=== PATIENT | male | born 1990 | race Caucasian/White ===

== ENCOUNTER 2018-02-24 19:42 | Emergency (ER) | payer OTHER ==
--- NOTE | 2018-02-24 20:02 | EDPHY ---
H & P Stated Complaint: Poss seizure, blackrody, recently started new meds Time Seen by Provider: 02/24/18 20:02 HPI/ROS: CHIEF COMPLAINT: First-time seizure HISTORY OF PRESENT ILLNESS: The patient presents to the ED after witnessed first-time seizure at work. It was associated with a postictal state and reported 15 sec episode of tonic-clonic movements according to his co-workers. The patient did experience a tongue bite. The patient recently started Zoloft for anxiety. He reportedly has been tapering is alcohol consumption over the past several weeks as well. The patient denies any complaints of headache or trauma. The patient is also on medications for insomnia, nausea and hypertension. He recently has established care at the [facility]. REVIEW OF SYSTEMS: A comprehensive 10 point review of systems is otherwise negative aside from elements mentioned in the history of present illness. Source: Patient - Personal History Current Tetanus Diphtheria and Acellular Pertussis (TDAP): Yes - Medical/Surgical History Hx Asthma: No Hx Chronic Respiratory Disease: No Hx Diabetes: No Hx Cardiac Disease: No Hx Renal Disease: No Hx Cirrhosis: No Hx Alcoholism: No Hx HIV/AIDS: No Hx Splenectomy or Spleen Trauma: No Other PMH: Depression, - Social History Smoking Status: Light smoker - Physical Exam Exam: General Appearance: Alert, no acute distress Eyes: Pupils equal and round no pallor or injection ENT, Mouth: Mucous membranes moist, evidence of tongue bite Respiratory: There are no retractions, lungs are clear to auscultation Cardiovascular: Regular rate and rhythm Gastrointestinal: Abdomen is soft and nontender, no masses, bowel sounds normal Neurological: A&O, normal motor function, normal sensory exam, normal cranial nerves Skin: Warm and dry, no rashes Musculoskeletal: Neck is supple nontender Extremities: symmetrical, full range of motion Constitutional: Initial Vital Signs Temperature (C) 36.8 C 02/24/18 19:54 Heart Rate 83 02/24/18 19:54 Respiratory Rate 18 02/24/18 19:54 Blood Pressure 134/101 H 02/24/18 19:54 O2 Sat (%) 98 02/24/18 19:54 O2 Delivery Mode Room Air Allergies/Adverse Reactions: No Known Allergies Allergy (Unverified 02/24/18 19:53) Home Medications: Medication Instructions Recorded Zofran 02/24/18 Zoloft 100mg (*) 02/24/18 Medical Decision Making - Diagnostics EKG Interpretation: EKG: Complete interpretation has been separately recorded in the [facility] archive. Summary impression: Sinus rhythm ED Course/Re-evaluation: The patient presents the ED after a likely first-time seizure. His laboratory studies are within normal limits. The patient's EKG demonstrates no evidence of arrhythmia. Patient has recently started Lexapro as well as decreased his alcohol consumption over the past several weeks. He has no evidence of overt alcohol withdrawal in the emergency department today. At this point time the patient will be discharged home with customary seizure aftercare instructions. He is advised to follow up with a neurologist at [facility]. Differential Diagnosis: Differential diagnosis considered includes seizure, alcohol withdrawal, dehydration, syncope, anemia, metabolic abnormality - Data Points Laboratory Results: Laboratory Results 02/24/18 20:15 02/24/18 20:15 02/24/18 02/24/18 20:15 20:15 WBC 9.84 10^3/uL H 10^3/uL (3.80-9.50) RBC 4.77 10^6/uL 10^6/uL (4.40-6.38) Hgb 15.2 g/dL g/dL (13.7-17.5) Hct 43.2 % % (40.0-51.0) MCV 90.6 fL fL (81.5-99.8) MCH 31.9 pg pg (27.9-34.1) MCHC 35.2 g/dL g/dL (32.4-36.7) RDW 12.7 % % (11.5-15.2) Plt Count 210 10^3/uL 10^3/uL (150-400) MPV 10.5 fL fL (8.7-11.7) Neut % (Auto) 78.8 % H % (39.3-74.2) Lymph % (Auto) 12.2 % L % (15.0-45.0) [place] % (Auto) 7.8 % % (4.5-13.0) Eos % (Auto) 0.3 % L % (0.6-7.6) Baso % (Auto) 0.5 % % (0.3-1.7) Nucleat RBC Rel Count 0.0 % % (0.0-0.2) Absolute Neuts (auto) 7.75 10^3/uL H 10^3/uL (1.70-6.50) Absolute Lymphs (auto) 1.20 10^3/uL 10^3/uL (1.00-3.00) Absolute Monos (auto) 0.77 10^3/uL 10^3/uL (0.30-0.80) Absolute Eos (auto) 0.03 10^3/uL 10^3/uL (0.03-0.40) Absolute Basos (auto) 0.05 10^3/uL 10^3/uL (0.02-0.10) Absolute Nucleated RBC 0.00 10^3/uL 10^3/uL (0-0.01) Immature Gran % 0.4 % % (0.0-1.1) Immature Gran # 0.04 10^3/uL 10^3/uL (0.00-0.10) Sodium 136 mEq/L mEq/L (135-145) Potassium 4.8 mEq/L mEq/L (3.5-5.2) Chloride 98 mEq/L mEq/L (97-110) Carbon Dioxide 26 mEq/l mEq/l (22-31) Anion Gap 12 mEq/L mEq/L (8-16) BUN 17 mg/dL mg/dL (7-23) Creatinine 1.0 mg/dL mg/dL (0.7-1.3) Estimated GFR > 60 Glucose 104 mg/dL H mg/dL (70-100) Calcium 9.7 mg/dL mg/dL (8.5-10.4) Departure - Departure Disposition: Home, Routine, Self-Care Clinical Impression: New onset seizure Condition: Good Instructions: New-Onset Seizure in Adults (ED) Additional Instructions: 1. No driving, dangerous activities such as riding a ski lift, swimming in a pool or other behavior that could put you or someone else at risk in the event of a recurrent seizure. You will need to be cleared by a neurologist to resume these activities. 2. Please return to the ED for recurrent seizure, headache, numbness, weakness, altered mental status or other concerns. 3. Please follow up with neurologist you have been referred to this week to schedule a follow-up appointment. Referrals: Sandra,Leslie P, DO [Non Staff and Non MD] - As per Instructions
--- NOTE | 2018-02-24 20:16 | CPEKG ---
Heart Rate: 88 RR Interval: 682 P-R Interval: 172 QRSD Interval: 112 QT Interval: 380 QTC Interval: 460 P [place]: 45 QRS [place]: 48 T Wave [place]: 71 EKG Severity - ABNORMAL ECG - EKG Impression: SINUS RHYTHM EKG Impression: NONSPECIFIC INTRAVENTRICULAR CONDUCTION DELAY EKG Impression: PROBABLE LEFT VENTRICULAR HYPERTROPHY Electronically Signed By: Sebas Leblanc 24-Feb-2018 20:30:09
[2018-02-24 20:22] LABS: PLATELET COUNT 210 10^3/uL (150-400)
[2018-02-24 21:20] VITALS: BP 132/73; PULSE 77; RESP 16; TEMP 98.1; O2SAT 97
== END 2018-02-24 21:19 | disposition home or self-care (01) ==
DX: R56.9 Unspecified convulsions (principal); F17.200 Nicotine dependence, unspecified, uncomplicated

== ENCOUNTER 2018-03-05 14:18 | Emergency (ER) | payer OTHER ==
--- NOTE | 2018-03-05 14:44 | CPEKG ---
Heart Rate: 82 RR Interval: 732 P-R Interval: 172 QRSD Interval: 114 QT Interval: 404 QTC Interval: 472 P [place]: 52 QRS [place]: 52 T Wave [place]: 57 EKG Severity - ABNORMAL ECG - EKG Impression: SINUS RHYTHM EKG Impression: NONSPECIFIC INTRAVENTRICULAR CONDUCTION DELAY EKG Impression: PROBABLE LEFT VENTRICULAR HYPERTROPHY EKG Impression: INFERIOR Q WAVES, PROBABLY NORMAL VARIATION Electronically Signed By: Carla Gordon 05-Mar-2018 20:47:20
[2018-03-05] MEDS ORDERED: LORazepam 2 MG/ML INJ IVP ONE ×2 (14:55→16:12)
[2018-03-05] MEDS ORDERED: NS 1,000 ML IV ONE (14:55)
[2018-03-05 14:59] LABS: PLATELET COUNT 156 10^3/uL (150-400)
[2018-03-05] MEDS ORDERED: ONDANSETRON 4 MG/2 ML VIAL IVP ONE (16:19)
[2018-03-05 16:20] VITALS: BP 157/93
--- NOTE | 2018-03-05 16:20 | EDPHY ---
H & P Time Seen by Provider: 03/05/18 14:43 HPI/ROS: HPI Seizure. 27-year-old male by ambulance from the office of his primary care physician at the [facility], Dr. Tate booth. The patient came into see Dr. Painter with complaint of nausea. Early on in his examination course there he developed what appeared to be an abscess aunts type seizure state followed by tonic-clonic activity that lasted between 3 and 5 min. He has a recent history of an emergency department visit on the 24 of February of this year for a new onset seizure. His workup at that time was unremarkable. He was encouraged to follow up with Neurology. He does have an appointment to see Dr. Corey Phillip of the neurology service on Thursday of next week. He has a former history of alcohol abuse but denies any prior history of alcohol withdrawal seizures. He states that he does not drink heavily anymore and states that his last alcohol use was last . He denies headache. Denies any focal weakness or altered sensation in his extremities. No changes in vision. He states he is nauseous at this time. Otherwise he does not have any complaints. ROS: Constitutional: No fever, no chills. No weakness. Eyes: No discharge. No changes in vision. ENT: No sore throat. No nasal congestion or rhinorrhea. Respiratory: No cough. No shortness of breath. Cardiac: No chest pain, no palpitations. Gastrointestinal: No abdominal pain, no vomiting, no diarrhea. As above. Genitourinary: No hematuria. No dysuria or increased frequency with urination. Musculoskeletal: No back pain. No neck pain. No myalgias or arthralgias. Skin: No rashes. Neurological: No headache. No focal weakness or altered sensation. Past medical history: New onset seizure. As above. Depression. He states he takes Zoloft and takes a benzodiazepine at night. He is not sure of the name of the benzodiazepine. Social history: Nonsmoker. As above. Currently here by himself. He has friends who can pick him up if needed. Physical Exam: General Appearance: Alert, no distress. This patient is responding to questions appropriately and in full sentences. This patient appears well- hydrated and well-nourished. Eyes: Pupils equal and round and reactive to light at 3-2 mm bilaterally, no pallor or injection. No lid edema, erythema or injection. No nystagmus. No photophobia. ENT, Mouth: Mucous membranes are moist. The pharyngeal tissues are unremarkable. No edema or swelling. No asymmetry suggestive of abscess. No erythema or exudates. No tongue lacerations or abrasions. Respiratory: There are no retractions, lungs are clear to auscultation with good air movement bilaterally. Cardiovascular: Regular rate and rhythm. No murmur. Gastrointestinal: Abdomen is soft and nontender, no masses, bowel sounds normal. No focal tenderness at McBurney's point. No Sanders sign. Neurological: Motor sensory function is grossly intact. Cranial nerves are normal. Gait is normal. Skin: Warm and dry, no rashes. Musculoskeletal: Neck is supple and nontender. No pain on flexion of his neck. Extremities are symmetrical. All joints range without pain or impingement. Psychiatric: No agitation. No depression. Database: EKG: EKG time is 2:42 p.m.; EKG shows a narrow complex normal sinus rhythm with a ventricular rate of 82. A nonspecific intraventricular conduction delay is noted. Probable left ventricular hypertrophy. Q-waves are noted in the inferior leads. The IN, QRS, QT intervals are within normal limits. There are no ST-T wave changes indicative of ischemic or injury pattern. No evidence of right heart strain. Interpreted by me. Imaging: CT scan of head without contrast: Negative. Results were discussed with staff radiologist Dr. Jonathan Colorado. Procedures: Emergency department course: IV was placed. He was placed on a cloth finishing range back tender. Vital signs reviewed. Mildly tachycardic on arrival. Moderately hypertensive. Initial neurologic Assessment is nonfocal. EKG obtained and reviewed by myself. He consents for CT imaging of his brain. He was started on IV normal saline with 500 cc to 1 L to be given over the next hr. He was given 1 mg of IV Ativan and 4 mg of IV Zofran for seizure prophylaxis and nausea. 4:20 p.m., patient re-evaluated. Mildly anxious. Results of his emergency department workup discussed with him. Repeat neurologic Assessment is nonfocal. At this time I feel he is safe for discharge. He has follow-up as scheduled next Thursday with Neurology, Dr. Corey Phillip. I will not start him on antiepileptics at this time. I will defer that to Dr. Kid. The patient is in agreement. Standard seizure precaution instructions were discussed with him in detail. He has been instructed not to drink alcohol as well. He understands the importance of this follow-up with Neurology next week. Return to emergency department precautions have been thoroughly reviewed with him. All of his questions were answered. He was discharged in good condition. His serum alcohol was noted to be 17. He told me he has not had a drink since last weekend. There is concern that he may be drinking more than he admits to and his seizure is related to alcohol withdrawal. Differential Diagnosis: The differential diagnosis on this patient includes but is not limited to seizure. Subarachnoid hemorrhage, arrhythmia, hypoglycemia, hyponatremia, CVA meningitis, encephalitis unlikely. This represents a partial list of diagnoses considered. These considerations are based on history, physical exam, past history, reassessment and diagnostic testing. Smoking Status: Light smoker Constitutional: Initial Vital Signs Temperature (C) 36.4 C 03/05/18 14:25 Heart Rate 106 H 03/05/18 14:25 Respiratory Rate 18 03/05/18 14:25 Blood Pressure 146/99 H 03/05/18 14:25 O2 Sat (%) 97 03/05/18 14:25 O2 Delivery Mode Room Air Allergies/Adverse Reactions: No Known Allergies Allergy (Unverified 02/24/18 19:53) Home Medications: Medication Instructions Recorded Zofran 02/24/18 Zoloft 100mg (*) 02/24/18 Medical Decision Making - Diagnostics Imaging Results: Imaging Impressions Head CT 03/05/18 14:55 Impression: Normal. Results called and discussed with Carla Gordon MD at 03/05/2018 15:14. - Data Points Laboratory Results: Laboratory Results 03/05/18 14:23 03/05/18 14:23 03/05/18 03/05/18 03/05/18 14:25 14:23 14:23 WBC 11.09 10^3/uL H 10^3/uL (3.80-9.50) RBC 5.18 10^6/uL 10^6/uL (4.40-6.38) Hgb 16.5 g/dL g/dL (13.7-17.5) Hct 48.9 % % (40.0-51.0) MCV 94.4 fL fL (81.5-99.8) MCH 31.9 pg pg (27.9-34.1) MCHC 33.7 g/dL g/dL (32.4-36.7) RDW 12.7 % % (11.5-15.2) Plt Count 156 10^3/uL 10^3/uL (150-400) MPV 11.3 fL fL (8.7-11.7) Neut % (Auto) 57.6 % % (39.3-74.2) Lymph % (Auto) 31.5 % % (15.0-45.0) [place] % (Auto) 9.8 % % (4.5-13.0) Eos % (Auto) 0.1 % L % (0.6-7.6) Baso % (Auto) 0.6 % % (0.3-1.7) Nucleat RBC Rel Count 0.0 % % (0.0-0.2) Absolute Neuts (auto) 6.39 10^3/uL 10^3/uL (1.70-6.50) Absolute Lymphs (auto) 3.49 10^3/uL H 10^3/uL (1.00-3.00) Absolute Monos (auto) 1.09 10^3/uL H 10^3/uL (0.30-0.80) Absolute Eos (auto) 0.01 10^3/uL L 10^3/uL (0.03-0.40) Absolute Basos (auto) 0.07 10^3/uL 10^3/uL (0.02-0.10) Absolute Nucleated RBC 0.00 10^3/uL 10^3/uL (0-0.01) Immature Gran % 0.4 % % (0.0-1.1) Immature Gran # 0.04 10^3/uL 10^3/uL (0.00-0.10) Sodium 143 mEq/L mEq/L (135-145) Potassium 3.6 mEq/L mEq/L (3.5-5.2) Chloride 99 mEq/L mEq/L (97-110) Carbon Dioxide 10 mEq/l L mEq/l (22-31) Anion Gap 34 mEq/L H mEq/L (8-16) BUN 14 mg/dL mg/dL (7-23) Creatinine 1.1 mg/dL mg/dL (0.7-1.3) Estimated GFR > 60 Glucose 161 mg/dL H mg/dL (70-100) Calcium 10.4 mg/dL mg/dL (8.5-10.4) Ethyl Alcohol 17 mg/dL H mg/dL (0-10) Medications Given: Discontinued Medications Sodium Chloride (Ns) 1,000 mls @ 0 mls/hr IV ONCE ONE; Wide Open PRN Reason: Protocol Stop: 03/05/18 14:56 Last Admin: 03/05/18 15:39 Dose: 1,000 mls Lorazepam (Ativan Injection) 1 mg IVP EDNOW ONE Stop: 03/05/18 14:56 Last Admin: 03/05/18 15:01 Dose: Not Given Lorazepam (Ativan Injection) 1 mg IVP EDNOW ONE Stop: 03/05/18 16:13 Last Admin: 03/05/18 16:15 Dose: 1 mg Departure - Departure Disposition: Home, Routine, Self-Care Clinical Impression: Seizure Condition: Good Instructions: Recurrent Seizures in Adults (ED), New-Onset Seizure in Adults ( ED) Additional Instructions: Read and follow provided instructions. Follow-up with your neurology, Dr. Corey Phillip, as scheduled next Thursday. It is very important you do this. Absolutely no driving or operating heavy machinery until you have been cleared by Neurology. Continue taking your medications as prescribed. Return to the emergency department for return of seizures, headaches, fever, neck pain or other serious concerns. To whom it concerns, Mr. Flower has had 2 documented seizures in the last 2 weeks. 1 occurred on February 24 and 1 today March 05. Referrals: Corey Phillip DO [Medical Doctor] - As per Instructions
--- NOTE | 2018-03-05 17:06 | ASMTCMCOM ---
CM Note CM Note Notes: Chart reviewed for patient with return ER visit s/p witnessed seizure activity (see ER report). I met with patient to discuss follow up plans and potential ETOH resources. Patient acknowledges that he "had" alcohol problems in the past but "doesn't drink much anymore". I talked with patient about seizure precautions and potential for withdrawal seizures varying from person to person. Patient is reluctant to discuss potential relationship of seizures with alcohol withdrawal and he denies taking any prescription medication "other than prescribed". He does admit to taking a "benzodiazapine" pill at night (anxiety), but is unable to tell me the name. I did inform him of the potential for withdrawal/seizures from benzodiazapines as well. Patient denies taking more than his prescribed dose of this medication Follow up appointment with Dr. Phillip (neurology) is scheduled for Thursday, March 10 and patient will follow up with Dr. Oates (PCP) at [facility] as well. Per chart review, patient was at the [facility] this morning (Dr. Hancock) when his seizure activity occurred today. Date Signed: 03/05/2018 05:05 PM Electronically Signed By:Zohreh Osborne RN
== END 2018-03-05 16:43 | disposition home or self-care (01) ==
LOC: EDUNIT#
DX: G40.909 Epilepsy, unspecified, not intractable, without status epilepticus (principal); F17.200 Nicotine dependence, unspecified, uncomplicated; E86.9 Volume depletion, unspecified
CPT/HCPCS: 96374; G0480; J2060; J2405